=== PATIENT | female | born 1955 | race Caucasian/White ===

== ENCOUNTER 2018-04-20 11:27 | Inpatient (IN) ==
[2018-04-20] MEDS ORDERED: Metoprolol Tartrate 25 MG Tablet PO ONE (12:23)
[2018-04-20] MEDS ORDERED: Chlorhexidine Gluconate 2% 1 Pack (2 Cloths) TOPICAL ONE (12:23)
[2018-04-20] MEDS ORDERED: Dextrose 5%/NaCl 0.9% Inj 1,000 ML IV.CONT SCH (12:30)
[2018-04-20] MEDS ORDERED: Bupivacaine PF 0.5% Inj 30 ML Vial ONE (12:54)
[2018-04-20] MEDS ORDERED: ceFAZolin 1 GM Premix Inj 1 GM/50 ML IV.SIG SCH (13:00)
[2018-04-20] MEDS ORDERED: Sodium Chlor 0.9% Inj 500 ML IV.SIG SCH (13:00)
--- NOTE | 2018-04-20 13:30 | P.HPUP ---
The Pre-Admit History and Physical Examination regarding the above named patient was reviewed (including, but not limited to, vital signs, heart, lungs, co-morbid conditions), and upon re-examination it is noted that: the patient's condition has not significantly changed since the last examination.
[2018-04-20] MEDS ORDERED: Bupivacaine 0.5% Inj 50 ML MDV Vial ONE (14:52)
[2018-04-20] MEDS ORDERED: Bupivacaine PF 0.5% Inj 30 ML Vial NERV BLOCK PRN (16:12)
[2018-04-20] MEDS ORDERED: Potassium Chlor 20 mEq Premix 20 MEQ/100 ML PIGGYBACK IV.SIG PRN (16:12)
[2018-04-20] MEDS ORDERED: Potassium Chlor 40 mEq Premix 40 MEQ/100 ML PIGGYBACK IV.SIG PRN (16:12)
[2018-04-20] MEDS ORDERED: fentaNYL Citrate Inj 100 MCG/2 ML Ampul ONE (16:16)
[2018-04-20] MEDS ORDERED: *morphine SULFATE 4 MG/ML PERIprocedure ONLY ONE (16:21)
[2018-04-20] MEDS ORDERED: *morphine SULFATE 10 MG/ML PERIprocedure ONLY ONE ×2 (16:41→17:12)
[2018-04-20] MEDS: KCL 20 mEq/D5W/NaCl 0.9% Inj 1,000 ML IV.CONT SCH ×2 (16:45→23:05)
[2018-04-20] MEDS: Pantoprazole Inj 40 MG Vial IV.PUSH SCH (17:15)
[2018-04-20] MEDS: dilTIAZem CD 120 MG Capsule PO SCH (19:22)
[2018-04-20] MEDS: ceFAZolin 1 GM Premix Inj 1 GM/50 ML FROZ.PIGGY IV.SIG SCH ×2 (19:27→21:46)
[2018-04-21] MEDS ORDERED: Morphine Inj 30 MG/30 ML PCA.VIAL PCA ONE (00:10)
[2018-04-21] MEDS: Morphine Inj 30 MG/30 ML PCA.VIAL PCA PRN ×2 (00:30→17:29)
[2018-04-21] MEDS: ceFAZolin 1 GM Premix Inj 1 GM/50 ML FROZ.PIGGY IV.SIG SCH ×2 (01:55→08:55)
[2018-04-21] MEDS ORDERED: diphenhydrAMINE HCl 50 MG/ML VIAL IV.PUSH ONE (04:33)
[2018-04-21] MEDS: KCL 20 mEq/D5W/NaCl 0.9% Inj 1,000 ML IV.CONT SCH ×3 (06:10→17:29)
[2018-04-21] MEDS: Pantoprazole Inj 40 MG Vial IV.PUSH SCH (08:55)
[2018-04-21] MEDS: dilTIAZem CD 120 MG Capsule PO SCH (08:55)
[2018-04-21 10:54] LABS: Baso % (Auto) 0.1 % (0.0-2.0); Hematocrit 33.7 % (35.0-46.0); Hemoglobin 10.8 gm/dL (11.6-15.3); Lymph # (Auto) 0.8 th/mm3 (1.0-4.8); Lymph % (Auto) 4.8 % (9.0-44.0); Mean Corpuscular Hemoglobin 25.7 pg (27.0-34.0); Mean Corpuscular Volume 80.4 fL (80.0-100.0); Mean Platelet Volume 7.2 fL (7.0-11.0); Mono # (Auto) 0.9 th/mm3 (0.0-0.9); Mono % (Auto) 5.4 % (0.0-8.0); Neut # (Auto) 15.6 th/mm3 (1.8-7.7); Neut % (Auto) 89.7 % (16.0-70.0); Platelet Count 411 th/mm3 (150-450); Red Blood Count 4.19 mil/mm3 (4.00-5.30); Red Cell Distribution Width 16.9 % (11.6-17.2); White Blood Count 17.4 th/mm3 (4.0-11.0)
[2018-04-21 11:19] LABS: Carbon Dioxide 23.3 meq/L (21.0-32.0); Potassium 3.9 meq/L (3.5-5.1)
--- NOTE | 2018-04-21 18:50 | P.PNCS ---
Subjective Colorectal Surgery Post Op Day #: 1 Interval history: afebrile, VSS UO good Objective Result Diagrams: 04/21/18 10:18 04/21/18 10:18 Objective Remarks: PE alert Abd - soft, wound dry, min tympany Assessment and Plan - Plan Imp: stable post-op OOB decr IVF tx to floor
[2018-04-22 05:31] LABS: Baso # (Auto) 0.1 th/mm3 (0.0-0.2); Baso % (Auto) 0.6 % (0.0-2.0); Eos # (Auto) 0.1 th/mm3 (0.0-0.4); Eos % (Auto) 0.6 % (0.0-4.0); Hematocrit 27.1 % (35.0-46.0); Lymph # (Auto) 1.7 th/mm3 (1.0-4.8); Lymph % (Auto) 13.3 % (9.0-44.0); Mean Corpuscular HGB Conc 33.3 % (32.0-36.0); Mean Platelet Volume 7.3 fL (7.0-11.0); Mono # (Auto) 0.9 th/mm3 (0.0-0.9); Mono % (Auto) 6.8 % (0.0-8.0); Neut # (Auto) 10.2 th/mm3 (1.8-7.7); Neut % (Auto) 78.7 % (16.0-70.0); Platelet Count 336 th/mm3 (150-450); Red Blood Count 3.47 mil/mm3 (4.00-5.30); Red Cell Distribution Width 16.8 % (11.6-17.2); White Blood Count 12.9 th/mm3 (4.0-11.0)
[2018-04-22 05:56] LABS: Anion Gap 6 meq/L (5-15); Blood Urea Nitrogen 6 mg/dL (7-18); Calcium 7.8 mg/dL (8.5-10.1); Carbon Dioxide 24.3 meq/L (21.0-32.0); Chloride 107 meq/L (98-107); Glomerular Filtration Rate Greater Than 89 mL/min (>89); Glucose,Random 105 mg/dL (74-106); Potassium 3.8 meq/L (3.5-5.1); Sodium 137 meq/L (136-145)
--- NOTE | 2018-04-22 07:37 | P.PNCS ---
Subjective Colorectal Surgery Post Op Day #: 2 Interval history: afebrile, VSS UO good +BM Objective Result Diagrams: 04/22/18 04:14 04/22/18 04:14 Objective Remarks: PE alert Abd - soft, wound dry, min tympany Assessment and Plan - Plan Imp: OOB decr IVF adv diet
[2018-04-22] MEDS: KCL 20 mEq/D5W/NaCl 0.9% Inj 1,000 ML IV.CONT SCH ×3 (07:58→17:48)
[2018-04-22] MEDS: dilTIAZem CD 120 MG Capsule PO SCH (09:57)
[2018-04-22] MEDS: Pantoprazole Inj 40 MG Vial IV.PUSH SCH (10:00)
--- NOTE | 2018-04-22 12:37 | MP ---
cc: Suresh Michele MD, Andrew H MD DATE OF OPERATION: 04/20/2018 POSTOPERATIVE DIAGNOSIS: Chronic diverticular disease. PROCEDURE: Exploratory laparotomy with proctosigmoidectomy and low pelvic anastomosis. POSTOPERATIVE DIAGNOSIS: Partially obstructing chronic diverticulitis. SURGEON: Suresh Michele MD SOFTWARE ENGINEERING PROJECT MANAGER: Sukhi Lerma MD PROCEDURE: The patient was placed in the supine position. After adequate general anesthesia, her legs were placed in the universal stirrups and supported appropriately. The abdomen and perineum were then prepped with Betadine solution and draped in the usual sterile fashion. With Dr. Lerma's assistance, the abdomen was opened through an infraumbilical transverse incision, dividing the rectus muscles with electrocautery. Exploration of the abdominal cavity revealed a segment of rectosigmoid, which was very hard and chronically thickened and stuck down into the pelvis. It appeared to wrap back on itself in almost a hairpin turn. The proximal colon was palpated and felt to be pretty unremarkable, somewhat redundant in the transverse colon and the cecum. The small bowel was run from ligament of Treitz down to the ileocecal valve and felt to be pretty unremarkable. The liver and gallbladder were normal. The stomach and duodenum were unremarkable. The uterus and ovaries were appropriate for the patient's age. First, the sigmoid colon was mobilized medially by dividing along the white line of Toldt. The left ureter was identified and carefully preserved. Dissection then proceeded at the left gutter, freeing the left colon off the retroperitoneum up towards the splenic flexure. The right retroperitoneal space was then opened and the bowel dissected off the presacral fascia, preserving the presacral nerves. The pedicle for the superior hemorrhoidal vessels identified and divided between Kellys, obtaining hemostasis with Vicryl ties. Dissection then proceeded down to the pelvis, mobilizing the inflammatory mass off the presacral fascia toward the pelvic floor. Anteriorly, the tubes and ovaries were freed from the inflammatory process, which appeared to be more in the cul-de-sac area. The uterus was elevated and dissection proceeded down the cul-de-sac, freeing the mass off the posterior vaginal wall and eventually getting to softer tissue after opening the cul-de-sac. At the appropriate point in the proximal rectum, the mesorectum was taken with electrocautery and the bowel finally divided between a pursestring suture device and a Lubna clamp. The bowel was incised to reach the rectal pouch without tension and with good blood supply dividing the marginal artery at the appropriate point. Hemostasis was achieved with Vicryl ties. The bowel was then divided between a pursestring suture device and a Lubna clamp. The end of the bowel was sized to accept a 29 mm EEA stapling anvil and this was secured with a pursestring suture. Dr. Lerma inserted the stapling instrument transanally under direct vision was brought up to the end of the rectal pouch and the pursestring suture tied. The stapler was then reassembled the bowel aligned properly. The stapled closed and fired. Upon withdrawal, 2 complete donuts of tissue were seen. Gentle insufflation confirmed an airtight anastomosis. The abdomen was then irrigated copiously with normal saline. Adequate hemostasis achieved at all sites. The omentum was very sparse but was draped over the bowel toward the pelvis. The transverse incision was then closed anatomically in 2 layers using #1 PDS sutures to reapproximate the respective fascial layers. The On-Q catheters were placed into the rectus sheaths on both sides of the abdomen and brought up through stab wounds in the midline. The subcutaneous tissue was irrigated copiously and the skin closed with a running subcuticular Vicryl suture. Wound area washed with normal saline and dried, sterile dressing of Telfa and gauze applied. The patient tolerated the procedure quite well and was brought to the recovery room in stable condition. The sponge and needle counts were correct at the end of the procedure. Suresh Michele MD [facility]/ct , 12:10 PM , 12:20 PM
[2018-04-22] MEDS: Morphine Inj 30 MG/30 ML PCA.VIAL PCA PRN ×2 (17:25→17:37)
[2018-04-22] MEDS ORDERED: Influenza (Quadrivalent) Vaccine 0.5 ML Syringe IM ONE (21:00)
[2018-04-23] MEDS: KCL 20 mEq/D5W/NaCl 0.9% Inj 1,000 ML IV.CONT SCH ×3 (03:53→14:03)
[2018-04-23 08:05] VITALS: RESP 16
[2018-04-23] MEDS: dilTIAZem CD 120 MG Capsule PO SCH (08:56)
[2018-04-23] MEDS: Pantoprazole Inj 40 MG Vial IV.PUSH SCH (10:38)
[2018-04-23 12:34] VITALS: BP 147/77; PULSE 81; TEMP 98.3; O2SAT 97
== END 2018-04-23 14:46 | disposition home or self-care (01) ==
LOC: HSDI 11:27 → HCIS 04-21 06:00 → N06 04-21 23:01
PROVIDERS: ADMIT Colon & Rectal Surgery; ATTEND Colon & Rectal Surgery